=== PATIENT | male | born 1995 | race Caucasian/White ===

== ENCOUNTER 2023-09-30 09:40 | Emergency (ER) | payer OTHER ==
[~2023-09-30] VITALS: Ht 180.3 cm; Wt 79.5 kg
[2023-09-30] MEDS ORDERED: ACET-683 PO (09:51)
[2023-09-30] MEDS ORDERED: SUBO8MIS SL (09:51)
[2023-09-30 12:50] LABS: RSV AMPLIFICATION NEGATIVE (NEGATIVE)
[2023-09-30 13:17] LABS: BASO # 0.1 10^3/uL (0.0-0.2); BASO % 1.1 % (0.0-1.0); EOS # 0.9 10^3/uL (0.0-0.5); EOS % 15.3 % (0.0-3.0); HEMOGLOBIN 12.7 g/dl (13.5-17.5); LYMPH # 1.5 10^3/uL (1.5-5.0); LYMPH % 27.2 % (24.0-44.0); MEAN CORPUSCULAR HEMOGLOBIN 30.8 pg (27.0-33.0); MEAN CORPUSCULAR HGB CONC 34.3 g/dl (32.0-36.5); MEAN CORPUSCULAR VOLUME 89.6 fl (80.0-96.0); MONO # 0.5 10^3/uL (0.0-0.8); MONO % 9.4 % (2.0-8.0); NEUTROPHILS # 2.6 10^3/uL (1.5-8.5); PLATELET COUNT, AUTOMATED 205 10^3/uL (150-450); RED BLOOD COUNT 4.13 10^6/uL (4.30-6.10); WHITE BLOOD COUNT 5.6 10^3/uL (4.0-10.0)
[2023-09-30] MEDS ORDERED: ISOVUE-370 76% 100ML VIAL As Ordered ONE (13:17)
[2023-09-30] MEDS ORDERED: ALBU6.7H6 INH (14:32)
[2023-09-30 14:47] VITALS: BP 128/72; TEMP 99.4; O2SAT 97
== END 2023-09-30 14:50 | disposition home or self-care (01) ==
LOC: M ED 09:40
DX: R07.81 Pleurodynia (principal); J43.9 Emphysema, unspecified; F17.200 Nicotine dependence, unspecified, uncomplicated; F19.10 Other psychoactive substance abuse, uncomplicated; Z79.52 Long term (current) use of systemic steroids; Z79.1 Long term (current) use of non-steroidal anti-inflammatories (NSAID); Z79.899 Other long term (current) drug therapy
CPT/HCPCS: 36415; 71046; 71275; 80047; 85025; 87631; 93005; 99284; Q9967

== ENCOUNTER 2024-06-17 17:15 | Emergency (ER) | payer OTHER, SELFPAY ==
[~2024-06-17] VITALS: Ht 180.3 cm; Wt 78.3 kg
[~2024-06-17 17:15] MED LIST: ACET-683 PO; ALBU6.7H6 INH; SUBO8MIS SL
[2024-06-17 17:16] VITALS: BP 132/80; TEMP 98.1; O2SAT 96
[2024-06-17] MEDS: PROPARACAINE 0.5% OPHTH SOL 15ML OS ONE (17:48)
[2024-06-17] MEDS: FLUORESCEIN OPHTH 1MG STRIP OS ONE (17:48)
[2024-06-17] MEDS ORDERED: ERYT5OIN25 OP (19:13)
[2024-06-17] MEDS: ERYTHROMYCIN OPHTH OINT OS ONE (19:15)
== END 2024-06-17 19:34 | disposition home or self-care (01) ==
LOC: M ED 17:15
DX: T15.02XA Foreign body in cornea, left eye, initial encounter (principal); Z79.2 Long term (current) use of antibiotics; Y92.9 Unspecified place or not applicable; Y93.89 Activity, other specified; Y99.9 Unspecified external cause status

== ENCOUNTER 2024-07-01 12:49 | Emergency (ER) | payer SELFPAY ==
[~2024-07-01] VITALS: Ht 180.3 cm; Wt 75.5 kg
[~2024-07-01 12:49] MED LIST changes: +ERYT5OIN25 OP
[2024-07-01] MEDS ORDERED: ISOVUE-370 76% 100ML VIAL As Ordered ONE (13:27)
[2024-07-01 13:52] LABS: BASO % 0.7 % (0.0-1.0); EOS # 0.4 10^3/uL (0.0-0.5); EOS % 6.6 % (0.0-3.0); HEMATOCRIT 42.6 % (42.0-52.0); HEMOGLOBIN 14.6 g/dl (13.5-17.5); LYMPH # 1.6 10^3/uL (1.5-5.0); LYMPH % 26.3 % (24.0-44.0); MEAN CORPUSCULAR HEMOGLOBIN 30.1 pg (27.0-33.0); MEAN CORPUSCULAR HGB CONC 34.3 g/dl (32.0-36.5); MEAN CORPUSCULAR VOLUME 87.8 fl (80.0-96.0); MONO # 0.6 10^3/uL (0.0-0.8); MONO % 9.5 % (2.0-8.0); NEUTROPHILS # 3.5 10^3/uL (1.5-8.5); NEUTROPHILS % 56.7 % (36.0-66.0); PLATELET COUNT, AUTOMATED 235 10^3/uL (150-450); RED BLOOD COUNT 4.85 10^6/uL (4.30-6.10); WHITE BLOOD COUNT 6.1 10^3/uL (4.0-10.0)
[2024-07-01] MEDS: BOOSTRIX VACCINE (TETANUS/DIPHTH/ACEL. PERTUSSIS) 0.5ML SYR IM.IMMUN ONE (14:04)
[2024-07-01 14:46] VITALS: O2SAT 98
[2024-07-01] MEDS ORDERED: HOME MED LIST COMPLETE! XX SCH (14:50)
[2024-07-01 14:53] VITALS: BP 116/69; TEMP 97.5
== END 2024-07-01 15:10 | disposition home or self-care (01) ==
LOC: M ED 12:49
DX: S06.0X0A Concussion without loss of consciousness, initial encounter (principal); S40.011A Contusion of right shoulder, initial encounter; S00.83XA Contusion of other part of head, initial encounter; V86.56XA Driver of dirt bike or motor/cross bike injured in nontraffic accident, initial encounter; Z23 Encounter for immunization; Y92.9 Unspecified place or not applicable; Y93.89 Activity, other specified; Y99.9 Unspecified external cause status
CPT/HCPCS: 70450; 70486; 71260; 72125; 73030; 74177; 80047; 85025; 90471; 90715; 93041; 94760; 99284; Q9967

== ENCOUNTER 2025-07-29 17:18 | Emergency (ER) | payer MEDICAID, OTHER, SELFPAY ==
[~2025-07-29] VITALS: Ht 180.3 cm; Wt 83.2 kg
[2025-07-29 18:08] LABS: BASO # 0.1 10^3/uL (0.0-0.2); BASO % 0.7 % (0.0-1.0); EOS # 0.2 10^3/uL (0.0-0.5); EOS % 2.9 % (0.0-3.0); LYMPH # 2.6 10^3/uL (1.5-5.0); LYMPH % 33.6 % (24.0-44.0); MONO # 0.5 10^3/uL (0.0-0.8); MONO % 6.9 % (2.0-8.0); NEUTROPHILS # 4.3 10^3/uL (1.5-8.5); NEUTROPHILS % 55.5 % (36.0-66.0); PLATELET COUNT, AUTOMATED 307 10^3/uL (150-450)
[2025-07-29 18:14] LABS: ALT/SGPT 15 U/L (7.0-40); AST/SGOT 18 U/L (<34); CALCIUM LEVEL 9.2 MG/DL (8.5-10.1); CARBON DIOXIDE LEVEL 26 MMOL/L (20-31); CHLORIDE LEVEL 104 MMOL/L (98-107); CREATININE FOR GFR 1.06 MG/DL (0.70-1.30); GLOMERULAR FILTRATION RATE > 90.0 (>60); INR 0.98; POTASSIUM SERUM 3.4 MMOL/L (3.5-5.1); SODIUM LEVEL 143 MMOL/L (136-145)
[2025-07-29] MEDS ORDERED: ISOVUE-370 76% 100 ML VIAL As Ordered ONE (18:20)
[2025-07-29] MEDS: TETANUS/DIPHTH/ACEL. PERTUSSIS 0.5 ML SYR IM.IMMUN ONE (19:05)
[2025-07-29] MEDS: POTASSIUM CHLORIDE 10MEQ SR TABLET PO ONE (19:06)
[2025-07-29] MEDS: MORPHINE 4 MG/ML 1 ML VIAL IV ONE (19:06)
[2025-07-29] MEDS: NS (Normal Saline) 0.9% 1,000 ML IV SCH (20:14)
[2025-07-29 21:30] VITALS: BP 124/59; TEMP 97.9; O2SAT 100
== END 2025-07-29 21:37 | disposition short-term general hospital (02) ==
LOC: EDBD 17:18 → M ED 17:18
DX: S06.0X9A Concussion with loss of consciousness of unspecified duration, initial encounter (principal); S31.20XA Unspecified open wound of penis, initial encounter; S83.114A Anterior dislocation of proximal end of tibia, right knee, initial encounter; S32.401A Unspecified fracture of right acetabulum, initial encounter for closed fracture; S32.511A Fracture of superior rim of right pubis, initial encounter for closed fracture; V27.41XA Electric (assisted) bicycle driver injured in collision with fixed or stationary object in traffic accident, initial encounter; M50.122 Cervical disc disorder at C5-C6 level with radiculopathy; M51.360 Other intervertebral disc degeneration, lumbar region with discogenic back pain only; F17.200 Nicotine dependence, unspecified, uncomplicated; Y92.480 Sidewalk as the place of occurrence of the external cause; Y93.89 Activity, other specified; Y99.9 Unspecified external cause status; Z23 Encounter for immunization
CPT/HCPCS: 70450; 71260; 72125; 73060; 73070; 73080; 73502; 73552; 73560; 73564; 73590; 74177; 80047; 80048; 80076; 85025; 85610; 85730; 86850; 86900; 86901; 90471; 90715; 93041; 94760; 96361; 96374; 99156; 99157; 99285; J3010; Q9967

== ENCOUNTER → 2025-09-05 | Outpatient (CLI) | payer OTHER | LOC: M RAD 07:41 | PROVIDERS: ATTEND Nurse Practitioner Family | DX: N50.811 Right testicular pain (principal); R59.0 Localized enlarged lymph nodes ==